=== PATIENT | female | born 1995 | race Caucasian/White ===

== ENCOUNTER 2017-10-06 11:59 | Emergency (ER) | payer OTHER ==
[~2017-10-06] VITALS: Ht 162.5 cm; Wt 131.5 kg
[~2017-10-06 11:59] MED LIST: AMOXIL400 MG/5 M PO; ANAPROX DS550 MG PO; AUGMENTIN ES-6050 ML PO; AUGMENTIN ES-6100 ML PO; BACTRIM DS 8001 TA1 PO; CLARITIN10 MG PO; CLARITIN5 MG/5 ML PO; CORTISPORIN 1%-10 M1 OT; DURICEF500 MG PO; IBU-6600 MG PO; MOTRIN400 MG PO; MOTRIN800 MG PO; PAXIL40 MG PO; PROTONIX40 MG PO; PYRIDIUM200 MG PO; TRIMOX500 MG PO; ZITHROMAX Z PA250 MG PO
[2017-10-06] MEDS ORDERED: ABILIFY5 MG PO (12:18)
[2017-10-06] MEDS ORDERED: BUTALBIT-ACETA1 EACH PO (12:19)
[2017-10-06] MEDS ORDERED: DEPO PROVER150 MG/M1 IJ (12:20)
== END 2017-10-06 13:40 | disposition home or self-care (01) ==
LOC: ED 11:59
DX: R53.83 Other fatigue (principal); R59.1 Generalized enlarged lymph nodes; Z79.899 Other long term (current) drug therapy; Z98.890 Other specified postprocedural states

== ENCOUNTER 2018-03-21 16:39 | Emergency (ER) | payer OTHER ==
[~2018-03-21] VITALS: Wt 131.5 kg
[~2018-03-21 16:39] MED LIST changes: +ABILIFY5 MG PO; +BUTALBIT-ACETA1 EACH PO; +DEPO PROVER150 MG/M1 IJ
[2018-03-21 17:02] LABS: BASO % 0.2 % (0.0-1.0); EOS % 0.3 % (1.0-4.0); HEMATOCRIT 39.4 % (37.0-47.0); HEMOGLOBIN 13.3 g/dl (12.0-16.0); LYMPH # 1.9 10*3/uL (1.3-4.4); LYMPH % 12.6 % (27.0-41.0); MEAN CELL VOLUME 88.5 fl (81.0-99.0); MEAN CORPUSCULAR HGB 29.9 pg (27.0-31.0); MEAN CORPUSCULAR HGB CONC 33.8 g/dl (33.0-37.0); MEAN PLATELET VOLUME 10.8 fl (9.6-12.3); MONO # 0.7 10*3/uL (0.1-1.0); MONO % 4.7 % (3.0-9.0); NEUT # 12.3 10*3/uL (2.3-7.9); NEUT % 81.9 % (47.0-73.0); PLATELET COUNT AUTOMATED 199 10*3/uL (130-400); RED BLOOD COUNT 4.45 10*6/uL (4.10-5.10); RED CELL DISTRI WIDTH 13.2 % (0-14.5)
[2018-03-21 17:18] LABS: ALBUMIN 3.9 gm/dl (3.1-4.5); ALKALINE PHOSPHATASE 75 U/L (45-117); BUN 10 mg/dl (7-24); CHLORIDE 106 mmol/L (98-107); CREATININE 0.74 mg/dL (0.55-1.02); POTASSIUM 3.7 mmol/L (3.5-5.1); SGOT/AST 12 IU/L (3-35); SGPT/ALT 15 U/L (12-78); SODIUM 138 mmol/L (136-145); TOTAL PROTEIN 7.3 gm/dL (6.4-8.2)
[2018-03-21] MEDS ORDERED: CLARITIN10 MG PO (17:35)
[2018-03-21] MEDS ORDERED: FLONASE ALLERG9.9 ML NAS (17:35)
== END 2018-03-21 17:42 | disposition home or self-care (01) ==
LOC: ED 16:39
PROVIDERS: Nurse Practitioner Family
DX: B34.9 Viral infection, unspecified (principal); R03.0 Elevated blood-pressure reading, without diagnosis of hypertension; Z79.899 Other long term (current) drug therapy

== ENCOUNTER 2018-06-05 02:59 | Emergency (ER) | payer OTHER ==
[~2018-06-05] VITALS: Ht 165.1 cm; Wt 128.4 kg
[~2018-06-05 02:59] MED LIST changes: +FLONASE ALLERG9.9 ML NAS
== END 2018-06-05 03:56 | disposition home or self-care (01) ==
LOC: ED 02:59
DX: S61.412A Laceration without foreign body of left hand, initial encounter (principal); Z79.899 Other long term (current) drug therapy; W25.XXXA Contact with sharp glass, initial encounter; Y93.89 Activity, other specified; Y92.89 Other specified places as the place of occurrence of the external cause; Y99.8 Other external cause status

== ENCOUNTER → 2019-11-14 | Outpatient (CLI) | payer MEDICAID | END | disposition home or self-care (01) | LOC: LAB 11:33 | DX: O16.2 Unspecified maternal hypertension, second trimester (principal); Z3A.23 23 weeks gestation of pregnancy ==